=== PATIENT | male | born 1975 | race Caucasian/White ===

== ENCOUNTER 2017-06-21 16:09 | Emergency (ER) | payer BC ==
[2017-06-21] MEDS ORDERED: KETOROLAC TROMETHAMINE 60 MG/2 ML VIAL IM ONE ×2 (17:03→17:05)
[2017-06-21] MEDS ORDERED: ORPHENADRINE CITRATE 30 MG/ML VIAL IM ONE (17:03)
--- NOTE | 2017-06-21 17:04 | ERNOTE ---
Back Pain ER HPI Date of Service: 06/21/17 Presenting Symptoms: injury/pain to back Time Seen by Provider: 06/21/17 16:56 Source: patient, RN notes reviewed, other - [facility] RO[facility] ATTENDANT database Exam Limitations: no limitations Immunizations: IMMUNIZATION HX Immunizations Up to Date Yes Allergies/Adverse Reactions: Allergies No Known Allergies Allergy (Unverified 06/21/17 16:21) Home Medications: HOME MEDICATIONS Bupropion HCl [Wellbutrin Sr] 150 mg PO DAILY 06/21/17 [Last Taken Unknown] Citalopram Hydrobromide [Celexa] 10 mg PO DAILY 06/21/17 [Last Taken Unknown] Cyclobenzaprine HCl [Flexeril] 10 mg PO TID PRN #30 tab 06/21/17 [Last Taken Unknown] Ibuprofen [Motrin] 600 mg PO Q6H PRN #40 tab 06/21/17 [Last Taken Unknown] oxyCODONE HCL/ACETAMINOPHEN [Oxycodone-Acetaminophen 5-325] 1 each PO Q6H PRN # 20 tablet 06/21/17 [Last Taken Unknown] Narrative: Duy is a 42-year-old male who presents to the emergency Department by private vehicle for low back pain and left-sided sciatica. This began a couple of weeks ago, but became much worse after he was on a long flight to come here to visit family. He reports he has not had any back problems prior to this. He has been taking naproxen without any improvement. He was unable to walk into the department without assistance. Timing: Reports: constant Quality/Severity: Reports: severe, aching Location of pain: Reports: lower back, radiating to lf thigh/leg Recent Injury?: Reports: no Associated Symptoms: Reports: difficulty walking. Denies: fever/chills, sweating, constipation/incontinence, nausea/vomiting, problems urinating, lightheadedness, numbess/weakness in legs Prior Treament: Denies: recently seen, similar symptoms before Review of Systems - Review of Systems Constitutional: Absent: recent illness, fever, chills EYE: Present: no symptoms reported ENT: Present: no symptoms reported Respiratory: Absent: shortness of breath, cough Cardiology: Absent: chest pain, syncope, edema Gastrointestinal/Abdominal: Absent: nausea, abdominal pain Genitourinary: Absent: frequency, dysuria, hematuria Musculoskeletal: Present: back pain. Absent: neck pain, joint pain Skin: Absent: rash, lesions, lumps Neurological: Absent: headache, dizziness/light-headedness, weakness, numbness, tingling Endocrine: Present: no symptoms reported Hematologic/Lymphatic: Present: no symptoms reported Psych: Present: no symptoms reported - Patient's Past Medical History Patient History - Medical: No pertinent hx Patient History - Cardiac/Respiratory: No pertinent hx Patient History - Cancer: No Hx of Cancer Patient History - Surgical Procedures: Noncontributory Patient History - Other: None - Social History Living Situations: home Abuse History: No History of abuse Psych History: Hx of Depression Alcohol Use: none Drug Use: none - Immunizations Immunizations Up to Date: Yes Physical Exam - Physical Exam General Appearance: Present: wd/wn, alert, other - In no acute distress but does appear uncomfortable Head Exam: Present: normal inspection Neck: Present: normal inspection, nontender, supple, full range of motion Respiratory: Present: no respiratory distress, normal breath sounds, no accessory muscle use, lungs clear Cardiovascular/Chest: Present: regular rate, rhythm, no murmur Back Exam: Present: no CVA tenderness, no vertebral tenderness, decreased range of motion, other - Tenderness with palpation of left lumbar paraspinal muscle region Extremity Exam: Present: normal inspection, no edema, decreased range of motion - Left leg - increases back pain Neurological Exam: Present: alert, oriented, normal mood/affect, no motor/ sensory deficits, other - Normal strength against resistance in lower extremities, dorsiflexes great toes without difficulty Skin Exam: Present: normal color, warm/dry ED Progress - Vital Signs Patient's Vital Signs:: I have reviewed the patient's vital signs. Vital Signs: Vital Signs 06/21/17 16:17 Temperature 36.7 C Pulse Rate 76 Respiratory 12 Rate Blood Pressure 149/95 O2 Sat by Pulse 95 Oximetry - Progress/Reassessment Chief Complaint: Back Pain Progress:: Improved Progress Note-Subjective: Little improvement after Toradol and Norflex IM, but is able to ambulate after taking Percocet. Planning to return to [place] tomorrow and f/u with his PCP if his symptoms are not improving later in the week. Departure Clinical Impression: Low back pain radiating to left lower extremity - Departure Disposition: Home Follow Up Needed Condition: Good Instructions: Sciatica, [id number] Additional Instructions: Ice Gentle stretching Pain medication and muscle relaxant may cause drowsiness, pain medication can also cause constipation Follow up with your doctor if symptoms do not improve in 7 to 10 days Prescriptions: Cyclobenzaprine HCl [Flexeril] 10 mg PO TID PRN #30 tab PRN Reason: MUSCLE SPASMS Ibuprofen [Motrin] 600 mg PO Q6H PRN #40 tab PRN Reason: Pain oxyCODONE HCL/ACETAMINOPHEN [Oxycodone-Acetaminophen 5-325] 1 each PO Q6H PRN # 20 tablet PRN Reason: Pain
[2017-06-21] MEDS ORDERED: ORPHENADRINE CITRATE 30 MG/ML VIAL ONE (17:05)
[2017-06-21] MEDS ORDERED: oxyCODONE HCL/ACETAMINOPHEN 1 TAB TABLET PO ONE ×2 (17:45→18:15)
[2017-06-21] MEDS ORDERED: oxyCODONE HCL/ACETAMINOPHEN 1 TAB TABLET ONE ×2 (17:51→18:17)
[2017-06-21] MEDS ORDERED: CYCLOBENZAPRINE HCL 10 MG TABLET PO ONE (18:15)
[2017-06-21 18:17] VITALS: BP 124/84
[2017-06-21] MEDS ORDERED: CYCLOBENZAPRINE HCL 10 MG TABLET ONE (18:18)
== END 2017-06-21 18:26 | disposition home or self-care (01) ==
LOC: ER 16:09
DX: M54.42 Lumbago with sciatica, left side (principal)